=== PATIENT | male | born 2000 | race Caucasian/White ===

== ENCOUNTER 2022-02-03 11:07 | Emergency (ER) | payer OTHER ==
[~2022-02-03] VITALS: Ht 180.3 cm; Wt 99.8 kg
[2022-02-03 11:13] VITALS: BP 131/74
--- NOTE | 2022-02-03 11:16 | NUR ---
PT AMBULATED TO ER BED 4 WITH A STEADY GAIT.
--- NOTE | 2022-02-03 11:17 | NUR ---
21 Y/O M AMBULATED TO BED 4 WITH STEADY GAIT, C/O RECTAL PAIN X 3 DAYS, AND BLOOD WHEN HE WIPES AFTER BM. NKDA PMH: DENIES
--- NOTE | 2022-02-03 11:17 | NUR ---
PT ALSO STATED THAT HE FEELS CONSTIPATED X THE LAST 3 DAYS, PT STATED " IT'S LIKE I'M NOT GETTING A FULL POOP OUT"
--- NOTE | 2022-02-03 11:47 | NUR ---
DR MORA AT BEDSIDE FOR MSE
--- NOTE | 2022-02-03 11:50 | NUR ---
CHAPERONED DR MORA AT BEDSIDE FOR RECTAL EXAM
[2022-02-03] MEDS ORDERED: RECT1DEV RC (11:55)
[2022-02-03] MEDS ORDERED: DOCU-3 PO (11:55)
[2022-02-03 12:00] VITALS: BP 131/74
--- NOTE | 2022-02-03 12:00 | NUR ---
Patient discharged with v/s stable. Written and verbal after care instructions given and explained. Patient alert, oriented and verbalized understanding of instructions. Ambulatory with steady gait. All questions addressed prior to discharge. ID band removed. Patient advised to follow up with PMD. Rx of DOCUSATE, LIDOCAINE (RECTICARE) given. Patient educated on indication of medication including possible reaction and side effects. Opportunity to ask questions provided and answered.
== END 2022-02-03 12:00 | disposition home or self-care (01) ==
LOC: MED 11:07
DX: K60.2 Anal fissure, unspecified (principal); J45.909 Unspecified asthma, uncomplicated; Z79.899 Other long term (current) drug therapy
CPT/HCPCS: 99282